=== PATIENT | female | born 1985 | race African-American/Black ===

== ENCOUNTER 2017-06-28 19:02 | Emergency (ER) | payer MEDICAID ==
[~2017-06-28] VITALS: Ht 160 cm; Wt 70.5 kg
[~2017-06-28 19:02] MED LIST: EQUALINE PRENATAL PO; IBU800 M1 PO; PERCOCET 325 MG1 TA2 PO
[2017-06-28 19:04] VITALS: BP 133/92; TEMP 98.8
[2017-06-28 20:02] VITALS: PULSE 74
== END 2017-06-28 20:02 | disposition home or self-care (01) ==
LOC: COL.ER 19:02
DX: H10.9 Unspecified conjunctivitis (principal)

== ENCOUNTER 2020-01-06 01:52 | Emergency (ER) | payer SELFPAY ==
[~2020-01-06] VITALS: Ht 160 cm; Wt 65.0 kg
[2020-01-06 02:31] LABS: COLLECTION METHOD CLEAN CATCH
[2020-01-06] MEDS ORDERED: FLAGYL500 MG PO (02:44)
[2020-01-06 02:57] VITALS: BP 138/74; PULSE 72; TEMP 98.2
[2020-01-06 02:59] LABS: MUCOUS Present /lpf; PH 5 (5-8); SQUAMOUS EPITHELIAL 0-2 /hpf; URINE APPEARANCE Cloudy; URINE BACTERIA None Seen /hpf; URINE BILIRUBIN Negative (NEGATIVE); URINE BLOOD 2+ (NEGATIVE); URINE COLOR Yellow; URINE GLUCOSE Negative (NEGATIVE); URINE KETONE Negative (NEGATIVE); URINE LEUKOCYTE ESTERASE Negative (NEGATIVE); URINE NITRATE Negative (NEGATIVE); URINE PROTEIN(semi-quant) Negative (NEGATIVE); URINE UROBILINOGEN Negative (NEGATIVE)
== END 2020-01-06 02:58 | disposition home or self-care (01) ==
LOC: COL.ER 01:52
PROVIDERS: Nurse Practitioner Primary Care
DX: N76.0 Acute vaginitis (principal)

== ENCOUNTER 2020-10-20 17:21 | Emergency (ER) | payer MEDICAID ==
[~2020-10-20] VITALS: Ht 162.6 cm; Wt 60.0 kg
[~2020-10-20 17:21] MED LIST changes: +FLAGYL500 MG PO
[2020-10-20] MEDS ORDERED: TRIAMCINOLONE A15 GM TP (17:53)
[2020-10-20 18:06] VITALS: BP 142/100; PULSE 88; TEMP 98.4
== END 2020-10-20 18:04 | disposition home or self-care (01) ==
LOC: COL.ER 17:21
DX: L25.9 Unspecified contact dermatitis, unspecified cause (principal); Z91.048 Other nonmedicinal substance allergy status

== ENCOUNTER 2020-12-04 09:42 | Emergency (ER) | payer MEDICAID ==
[~2020-12-04] VITALS: Ht 162.6 cm; Wt 59.1 kg
[~2020-12-04 09:42] MED LIST changes: +TRIAMCINOLONE A15 GM TP
[2020-12-04 11:13] VITALS: TEMP 98.3
[2020-12-04] MEDS ORDERED: BLISOVI FE 1-21 EACH PO (11:56)
[2020-12-04] MEDS ORDERED: IMITREX50 MG PO (13:27)
[2020-12-04 13:35] VITALS: BP 147/106; PULSE 69
== END 2020-12-04 13:36 | disposition home or self-care (01) ==
LOC: COL.ER 09:42
DX: R51.9 Headache, unspecified (principal)
CPT/HCPCS: J1885

== ENCOUNTER → 2021-05-07 | Outpatient (CLI) | payer MEDICAID ==
[~2021-05-07] MED LIST changes: +BLISOVI FE 1-21 EACH PO; +IMITREX50 MG PO
== END ==
LOC: COL.RAD 07:04
DX: I70.1 Atherosclerosis of renal artery (principal)
CPT/HCPCS: Q9967